=== PATIENT | male | born 1950 | race Caucasian/White ===

== ENCOUNTER → 2021-07-28 | Outpatient (CLI) | payer MEDICARE ==
--- NOTE | 2021-07-28 15:57 | XR ---
Right hip HISTORY: M 16.11 2 views of the right hip There is joint space loss, marginal spurring, subchondral eburnation and cystic lucency. Alignment an d bone mineralization are maintained. There are dense atherosclerotic calcifications. IMPRESSION: Osteoarthritis.
== END | disposition home or self-care (01) ==
LOC: RADXRMAIN 15:00
PROVIDERS: ATTEND Internal Medicine
DX: M16.11 Unilateral primary osteoarthritis, right hip (principal)
CPT/HCPCS: 73502

== ENCOUNTER → 2023-01-20 | Outpatient (CLI) | payer MEDICARE ==
--- NOTE | 2023-01-20 12:23 | CA ---
Exercise Nuclear Stress Test Report Name: Juan Carlos Renner Exam Date: 01/20/2023 11:20 Exam Location: [place] Stress Ht (in): 71 Wt (lb): 172 BSA: 1.98 Ordering Phys: Gerry Pimentel MD Referring Phys: Gerry Pimentel MD Technologist: Ricardo Raya Age: 72 Gender: M : 1950 Procedure CPT: Indications: I25.10 ICD-10 Codes: Patient History: Medications: FLOMAX, MOTRIN, PROSTATE HEALTH Meds past 24 hrs: Pretest Chest Pain: STRESS TEST Protocol Exercise Duration (min:sec): 06:[address] Depressions (mm): Angina Score: Padron Score: Resting HR (bpm): 60 Peak HR (bpm): 129 Resting BP (mmHg): 144 / 84 Peak BP (mmHg): 203 / 62 MPHR: 149 Target HR: 127 % MPHR: 87 METS: 7.1 Total Dose: Peak Dose: Atropine: Double Product: 44199 BP Response: Stress Termination: TARGET HR REACHED/MAX EXERTION Stress Symptoms: NO SYMPTOMS Stress Summary: ECG ANALYSIS Resting ECG: Stress ECG: CONCLUSIONS Good exercise tolerance Normal EKG in response to exercise Dr. Solitario Holden MD (Electronically Signed) Final Date: 20 January 2023 12:22
--- NOTE | 2023-01-20 12:26 | NM ---
EXAMINATION TYPE: NM stress cardiolite complete DATE OF EXAM: 01/20/2023 COMPARISON: NONE HISTORY: Chest pain TECHNIQUE: After the intravenous administration of 9.9 mCi Tc 99m Sestamibi - Rest images obtained 4 5 minutes post injection. The patient exercised using a DARRIAN protocol and 1 minute prior to peak e xercise was injected with 25.4 mCi Tc 99m Sestamibi - Stress images obtained 8 minutes post injection . FINDINGS: Targeted heart rate was achieved during performance of the study. Review of stress and rest SPECT berta ges demonstrates no distinct perfusion abnormality. Gated analysis shows normal wall motion with an estimated left ventricular ejection fraction of 54 %. IMPRESSION: No scintigraphic evidence for reversible ischemia
== END | disposition home or self-care (01) ==
LOC: RADNMMAIN 08:27
PROVIDERS: ATTEND Internal Medicine
DX: I25.10 Atherosclerotic heart disease of native coronary artery without angina pectoris (principal)
CPT/HCPCS: 93017; 78452; A9500

== ENCOUNTER → 2023-04-13 | Outpatient (CLI) | payer MEDICARE | END | disposition home or self-care (01) | LOC: LABPAT 09:35 | PROVIDERS: ATTEND Orthopaedic Surgery | DX: Z01.812 Encounter for preprocedural laboratory examination (principal); M16.11 Unilateral primary osteoarthritis, right hip; Z22.322 Carrier or suspected carrier of Methicillin resistant Staphylococcus aureus | CPT/HCPCS: 87070 ==

== ENCOUNTER 2023-04-17 12:46 | Day surgery (SDC) | payer MEDICARE ==
[2023-04-12 10:19] VITALS: BMI 24.0
--- NOTE | 2023-04-16 19:09 | HP ---
HISTORY AND PHYSICAL DATE OF SURGERY: 04/17/2023. HISTORY OF PRESENT ILLNESS: Juan Carlos Renner is a 72-year-old patient seen with symptomatic right hip osteoarthritis. We discussed options for treatment. The patient elected to proceed with direct anterior right total hip arthroplasty. Consent was obtained. PAST MEDICAL HISTORY: Noncontributory. PAST SURGICAL HISTORY: Noncontributory. DAILY MEDICATIONS: Flomax. ALLERGIES: None. SOCIAL HISTORY: Denies tobacco use. PHYSICAL EVALUATION OF THE RIGHT HIP: He has diffuse tenderness about the hip girdle. Very limited range of motion with severe pain. Positive hip impingement sign. Straight-leg raise negative. Distal neurovascular exam is intact. RADIOGRAPHS: Radiographs of the right hip revealed severe osteoarthritic changes. IMPRESSION: Right hip osteoarthritis. PLAN: Direct anterior right total hip arthroplasty. MMODL / IJN: [id number] /
[~2023-04-17 12:46] MED LIST: ACETAMINOPHEN TAB 500 MG TAB PO PRN; MELOXICAM 7.5 MG TAB PO PRN; TRANEXAMIC ACID IN NACL,ISO-OS 1,000 MG in SALINE 1 100ML.BAG IVPB PRN
[2023-04-17] MEDS ORDERED: ONDANSETRON 4 MG/2 ML VIAL ONE (13:14)
[2023-04-17] MEDS ORDERED: LACTATED RINGERS 1,000 ML IV ONE ×3 (13:20→17:46)
[2023-04-17] MEDS ORDERED: ONDANSETRON 4 MG/2 ML VIAL IVP ONE (14:04)
[2023-04-17] MEDS ORDERED: DEXAMETHASONE SOD PHOSPHATE 4 MG/ML 1 ML VIAL IVP ONE (14:05)
[2023-04-17] MEDS ORDERED: MIDAZOLAM 2 MG/2 ML VIAL IVP ONE (14:09)
--- NOTE | 2023-04-17 15:02 | P.ANPRN ---
Procedure Note - Anesthesia - Nerve Block Performed Right Lisandro Single Time Out Performed: Yes Date of Procedure: 04/17/23 Procedure Start Time: 14:08 Procedure Stop Time: 14:16 Location of Patient: PreOp Indication: Acute Post-Operative Pain, Requested by Surgeon Sedation Type: Sedate with meaningful contact maintained Preparation: Sterile Prep, Sterile Dressing Position: Supine Catheter: None Needle Types: Facet Needle Gauge: 20 Ultrasound used to visualize needle placement: Yes Ultrasound used to observe medication spread: Yes Injectate: 0.5% Ropivacaine (see comment for volume) (30 ml + decadron 4 mg) Blood Aspirated: No Pain Paresthesia on Injection Noted: No Resistance on Injection: Normal Image Stored and Saved: Yes Events: Uneventful and Well Tolerated
[2023-04-17] MEDS ORDERED: ROPIVACAINE 5 MG/ML 30 ML VIAL ONE (15:13)
[2023-04-17] MEDS ORDERED: PHENYLEPHRINE-0.9% NACL SYG 1,000 MCG/10 ML SYRINGE ONE (15:13)
[2023-04-17] MEDS ORDERED: fentaNYL (PF) 50 MCG/ML 2 ML AMP ONE (15:13)
[2023-04-17] MEDS ORDERED: GLYCOPYRROLATE 0.2 MG/ML 2 ML VIAL ONE (15:13)
[2023-04-17] MEDS ORDERED: MIDAZOLAM 2 MG/2 ML VIAL ONE (15:13)
[2023-04-17] MEDS ORDERED: DEXAMETHASONE SOD PHOSPHATE 4 MG/ML 1 ML VIAL ONE (15:13)
[2023-04-17] MEDS ORDERED: TRANEXAMIC ACID IN NACL,ISO-OS 1,000 MG/100 ML BAG ONE (15:13)
[2023-04-17] MEDS ORDERED: PROPOFOL 10 MG/ML 20 ML VIAL IV ONE (15:13)
[2023-04-17] MEDS ORDERED: NALOXONE 0.4 MG/ML 1 ML VIAL IV PRN (16:52)
[2023-04-17] MEDS ORDERED: HYDROcodone/APAP 5-325MG 1 EACH TAB PO PRN (16:52)
[2023-04-17] MEDS ORDERED: HYDROmorphone 0.5 MG/0.5 ML SYRINGE IVP PRN ×2 (16:52)
--- NOTE | 2023-04-17 16:52 | P.OP ---
Date of Procedure: 04/17/23 Preoperative Diagnosis: Right hip osteoarthritis Postoperative Diagnosis: Right hip osteoarthritis Procedure(s) Performed: Direct anterior right total hip arthroplasty Implants: 1. Depuy Corail 135 standard collar size 13 press-fit femoral stem 2. Depuy pinnacle 62 mm multi hole acetabular shell 3. Depuy pinnacle neutral polyethylene acetabular liner 36 mm ID 62 mm OD 4. Biolox delta ceramic femoral head 8.5 36 mm Anesthesia: regional (eector spinae block), spinal Surgeon: Joel Fitzgerald Cvicu Nurse #1: Andrew Handy Estimated Blood Loss (ml): 65 Pathology: none sent Condition: stable Disposition: PACU Indications for Procedure: 72-year-old patient seen with symptomatic right hip osteoarthritis. After treatment options were discussed, he elected to proceed with direct anterior right total hip arthroplasty. Operative Findings: See description of procedure Description of Procedure: The patient was taken to the operative suite. Patient underwent a spinal anesthetic by the department of anesthesia. Patient was then transferred to the [place] table. Patient was given preoperative IV antibiotics and TXA. Both lower extremities were placed in standard leg spars. The hip was then prepped and draped in the normal sterile orthopedic fashion. A standard anterior incision was made beginning 3 cm lateral and 1 cm distal to the ASIS extending 10 cm. Dissection was then carried down through the subcutaneous soft tissues down to the fascia overlying the tensor fascia julita. An incision was now made through the fascia. Careful dissection was taken down exposing the tensor fascia julita muscle. A Cobra retractor was now placed along the medial femoral neck and a second one along the lateral femoral neck. The venous circumflex vessels were now identified, cauterized and clipped. We identified the anterior hip capsule. An incision was made through the hip capsule along the lateral border. I performed a partial anterior capsulectomy. Retractors were now placed around the femoral neck itself. A femoral neck cut was now made with a sagittal saw. It was completed with an osteotome at the lateral neck area. The femoral head was now removed without difficulty. The extremity was now rotated to 60 of external rotation. It was locked in position. Residual labrum was now debrided out. Serial reaming was performed of the acetabulum while Sai TOBIN assisted holding an anterior retractor for exposure. Once we reached the appropriate size and a trial was position and fit nicely. The appropriate size was now chosen opened and made available. It was introduced into the acetabulum without difficulty. The C-arm/fluoroscopy was now brought into the operative field. We made sure we had a true AP pelvic view. We now under direct C- arm/fluoroscopy introduced into the acetabular component with appropriate version and inclination. I held the cup in appropriate position well Sai TOBIN used a mallet to seat the acetabular component. I noted the component now to be well seated and stable. Acetabular cup introduce her was removed. The C-arm was pulled back. An appropriate liner was introduced and clicked into position. It was felt to be stable. At this point retractors were removed. The extremity was now placed into 140 external rotation with no traction. The leg was now dropped to the ground and adducted. Appropriate retractors were now positioned along the proximal femur. We also placed our femoral look into position. Additional capsular releasing was performed to gain access to the proximal femur. We now used a box osteotome. A canal finder was now utilized. Serial broaching was now performed with the assistance of Sai TOBIN tapping the broaches down with a mallet while held the broach in appropriate rotation and position. This was done until we reached the appropriate size with good overall rotational stability. Appropriate calcar planing was performed. A trial head/neck was placed into position. The hip was now reduced. The C- arm/fluoroscopy was brought back into the operative field. I obtained AP pelvis was demonstrated adequate leg length alignment. The trial components appeared adequately size and position. The C-arm/fluoroscopy was pulled back. Retractors were repositioned and the hip was dislocated. The leg was again taken down to the ground and adducted. Appropriate retractors were repositioned as well as the femoral hook. All trial components were removed. The femoral implant was opened along with the femoral head. The femoral implant was introduced on the appropriate handle into our pre-broached area. I held the component position well Sai TOBIN used a mallet to seat the femoral component. The femoral component was now noted to be well seated and stable.. The femoral head was introduced with good positioning and fixation noted. Retractors were now removed. The hip was now reduced. There appeared be good positioning of the hip confirmed on intraoperative fluoroscopy. Spot films were obtained to document this. A second gram of TXA was given. The deep and superficial soft tissues were infiltrated with local analgesic. Bipolar cautery had been utilized intermittently through the procedure for hemostasis. The wound was irrigated copiously with pulse lavage mechanical irrigation. The fascia was repaired with Vicryl suture. The subcutaneous soft tissues were repaired in layers with Vicryl suture. The skin was approximated with pernio/Dermabond. Sterile dressings were applied. Patient was then awakened, transferred to a bed and taken to recovery in stable condition. Sai TOBIN assisted with the complex procedure.
[2023-04-17] MEDS ORDERED: LACTATED RINGERS 1,000 ML IV SCH (17:00)
--- NOTE | 2023-04-17 17:00 | FL ---
Intraoperative/procedural fluoroscopic services were provided. Total fluoroscopy time is 14 seconds w ith a total of 2 submitted images to PACS. Please see the operative/procedural note for further detai ls. DAP: 0.6889 mGym2
[2023-04-17] MEDS: HYDROmorphone 0.5 MG/0.5 ML SYRINGE IVP PRN ×2 (17:27→21:56)
[2023-04-17] MEDS: HYDROcodone/APAP 7.5-325MG 1 EACH TAB PO PRN (19:41)
[2023-04-17] MEDS ORDERED: SENNOSIDES-DOCUSATE SODIUM 1 EACH TAB PO SCH (21:00)
[2023-04-18] MEDS: HYDROcodone/APAP 7.5-325MG 1 EACH TAB PO PRN (03:11)
[2023-04-18 05:40] LABS: Basophils % (A) 0 %; Eosinophils % (A) 0 %; Lymphocytes # (A) 0.8 k/uL (1.0-4.8); Lymphocytes % (A) 6 %; MCH 30.3 pg (25.0-35.0); MCHC 33.4 g/dL (31.0-37.0); MCV 90.8 fL (80.0-100.0); Mean Platelet Volume 8.8; Monocytes # (A) 0.6 k/uL (0-1.0); Monocytes % (A) 5 %; Neutrophils # (A) 11.6 k/uL (1.3-7.7); Neutrophils % (A) 88 %; Platelet Count 174 k/uL (150-450); RBC 3.96 m/uL (4.30-5.90); RDW 13.3 % (11.5-15.5); WBC 13.3 k/uL (3.8-10.6)
[2023-04-18 07:49] VITALS: BP 119/66; PULSE 57; RESP 16; TEMP 97.9
--- NOTE | 2023-04-18 08:16 | P.PN ---
Subjective Progress Note Date: 04/18/23 Principal diagnosis: Status post direct anterior right total hip arthroplasty Patient evaluated today at bedside, he is eating breakfast. Patient notes he did have some discomfort through the night but seems to be improved this morning. Ambulating with the assistance of walker with no issues. He is eager to work with physical therapy. Patient denies any headaches, lightheadedness, chest pain or shortness of breath. Objective - Vital Signs Vital signs: Vital Signs Temp 97.9 F 04/18/23 07:15 Pulse 57 L 04/18/23 07:15 Resp 16 04/18/23 07:15 BP 119/66 04/18/23 07:15 Pulse Ox 96 04/18/23 07:15 FiO2 Intake & Output 04/17/23 04/18/23 04/18/23 18:59 06:59 18:59 Intake Total 2620 Output Total 65 Balance 2555 Weight 77.2 kg Intake: IV 2250 Intake, IV Titration 70 Amount Lactated Ringers 1,000 ml 70 @ 70 mls/hr IV .[id number] [facility] Rx#:[id number] Oral 300 Output: Estimated Blood Loss 65 Other: # Voids 1 - Exam Right lower extremity: Incision is clean, dry, and intact. The foam dressing is in good condition. [There is minimal soft tissue swelling and ecchymosis surrounding the medial and lateral aspects of the incision.] Calf is soft, no tenderness with palpation. Plantar flexion, dorsiflexion, EHL, FHL are intact. Sensory exam to light touch throughout the extremity is intact, [dorsal pedis pulses 2+.] - Labs CBC & Chem 7: 04/18/23 05:07 Labs: Abnormal Lab Results - Last 24 Hours (Table) 04/18/23 Range/Units 05:07 WBC 13.3 H (3.8-10.6) k/uL RBC 3.96 L (4.30-5.90) m/uL Hgb 12.0 L (13.0-17.5) gm/dL Hct 36.0 L (39.0-53.0) % Neutrophils # 11.6 H (1.3-7.7) k/uL Lymphocytes # 0.8 L (1.0-4.8) k/uL Assessment and Plan Assessment: Postoperative day #1 status post right direct anterior hip replacement Plan: Pain control, plan for discharge home on Wysox 7.5 mg/325 mg DVT prophylaxis, aspirin 81 mg twice a day for 30 days Wound care instructions discussed, this to include showering instructions, removal of bandage and icing and elevating Home physical therapy after discharge Encourage incentive spirometer Medical recommendations Discharge planning: pending how patient does with physical therapy, anticipate dc to home later today Time with Patient: Less than 30
[2023-04-18] MEDS ORDERED: ENOXAPARIN 40 MG/0.4 ML SYRINGE SQ SCH (09:00)
[2023-04-18] MEDS ORDERED: MELOXICAM 7.5 MG TAB PO SCH (09:00)
[2023-04-18] MEDS ORDERED: ATORVASTATIN 40 MG TAB PO SCH (09:00)
[2023-04-18] MEDS ORDERED: FINASTERIDE 5 MG TAB PO SCH (09:00)
[2023-04-18] MEDS ORDERED: TAMSULOSIN 0.4 MG CAP.ER.24H PO SCH (09:00)
[2023-04-18] MEDS ORDERED: FAMOTIDINE 20 MG TAB PO SCH (09:00)
[2023-04-18] MEDS ORDERED: MULTIVITAMINS, THERA 1 EACH TAB PO SCH (09:00)
--- NOTE | 2023-04-18 09:00 | P.CONS ---
History of Present Illness - Reason for Consult Consult date: 04/17/23 Medical management Requesting physician: Joel Fitzgerald - Chief Complaint Status post anterior right total hip arthroplasty - History of Present Illness HISTORY OF PRESENT ILLNESS: This is a 72-year-old male with a previous medical history significant for hyperlipidemia as well as enlarged prostate with lower urinary tract symptoms, osteoarthritis underwent right anterior total hip arthroplasty that was done successfully by Dr. Fitzgerald today and we were asked to see the patient for postoperative medical management, patient is laying down in bed in no apparent distress, he denies any chest pain, shortness breath, he has no abdominal pain, nausea vomiting or diarrhea, he seems to be tolerating treatment very well. REVIEW OF SYSTEMS: Constitutional: No documented fever, no chills, no night sweats. No weight change. No weakness, fatigue or lethargy. No daytime sleepiness. EENT: No headache. No blurred vision or double vision, no loss of vision. No loss of Hearing, no ringing in the ears, no dizziness. No nasal drainage or congestion. No epistaxis. No sore throat. Lungs: No shortness of breath, no cough, no sputum production. No wheezing. Reports dyspnea with activity. Cardiovascular: No chest pain, no lower extremity edema. No palpitations. No paroxysmal nocturnal dyspnea. No orthopnea. No lightheadedness or dizziness. No syncopal episodes. Abdominal: Reports abdominal pain. No nausea, vomiting. No diarrhea. No const ipation. No bloody or tarry stools reports loss of appetite. Genitourinary: No dysuria, increased frequency, urgency. No urinary retention. Musculoskeletal: No myalgias. No muscle weakness, no gait dysfunction, no frequent falls. No back pain. No neck pain. Integumentary: No wounds, no lesions. No rash or pruritus. No unusual bruising. No change in hair or nails. Neurologic: No aphasia. No facial droop. No change in mentation. No head injury. No headache. No paralysis. No paresthesia. Psychiatric: No depression. No anxiety. No mood swings. Endocrine: No abnormal blood sugars. No weight change. PAST MEDICAL HISTORY: Mixed hyperlipidemia Osteoarthritis BPH. PAST SURGICAL HISTORY: Colonoscopy October 2017 Colonoscopy 03/26/2021 SOCIAL HISTORY: Patient is a lifelong nonsmoker he denies any history of drinking, no drug use or abuse. FAMILY HISTORY: Father at age of 93 from stroke and he had hypertension, mother at age of 76 from congestive heart failure and diabetes mellitus type 2, patient had 2 brothers one brother had Parkinson and the other one with diabetes and CVA, patient has 2 sisters one sister has breast cancer patient has one son and 2 daughter one of them with Marcos thyroiditis. PHYSICAL EXAMINATION: General: 72-year-old male laying down in bed in no apparent distress HEENT: Head is atraumatic, normocephalic, pupils were equal round reactive to light and recommendation, extraocular muscle movement were intact, sclera no nicteric, conjunctivae were pale, mucous membranes of the mouth are somewhat dry. Neck: Supple, no JVP, normal carotid upstroke bilaterally, no lymphadenopathy. Chest: Decreased breath sounds at the bases, few rhonchi, no expiratory wheezes, no chest wall tenderness, no intercostal retractions. Heart: First heart sound is normal, second heart sound is normal there is systolic ejection murmur 2/6 located in the left sternal border per Abdomen: Soft, nontender, nondistended, positive bowel sounds. Extremities: There is no edema no calf tenderness DP +2 bilaterally, right hip is covered. Neurologic examination: Patient is awake alert and oriented x 3, cranial nerves II-12 appear grossly intact, muscle power were 5 out of 5 in upper extremities and 5 out of 5 in bilateral lower extremities, deep tendon reflexes normal bilaterally. ASSESSMENT AND PLAN: 1. Post operative day #0 status post right direct anterior hip arthroplasty. Patient was instructed to use the incentive spirometer to reduce the incidence of atelectasis and health care associated pneumonia, continue current pain henrry gement as outlined by orthopedic surgery, continue with DVT prophylaxis, early ablation, monitor the patient for urinary retention, resume his home medication, follow-up with the patient very closely, likely would be discharged home in the next 24 hours 2. Mixed hyperlipidemia. Continue patient on atorvastatin 40 mg orally once every day. 3. BPH. Continue patient on finasteride 5 mg once every day as well as Flomax 0.4 mg once every day, monitor the patient for urinary retention. 4. Osteoarthritis. Continue current pain management. 5. DVT prophylaxis. Continue patient on Lovenox 40 mg subcutaneous every 24 hours. Continue bilateral knee-high HOLLIS hose , early ambulation. 6. GI prophylaxis. Continue famotidine 20 mg orally once every day. 7. Thank you Dr. Fitzgerald for allowing me to participate in the care of your patient we will follow the patient along with you. Past Medical History Past Medical History: Hyperlipidemia, Osteoarthritis (OA), Prostate Disorder Additional Past Medical History / Comment(s): steroid injection February 2023 History of Any Multi-Drug Resistant Organisms: None Reported Past Surgical History: No Surgical Hx Reported Past Anesthesia/Blood Transfusion Reactions: No Reported Reaction, Motion Sickne ss Additional Past Anesthesia/Blood Transfusion Reaction / Comm: never has general anesthesia or blood transfusion Smoking Status: Never smoker - Past Family History Mother Family Medical History: Hypertension Brother(s) Family Medical History: CVA/TIA Medications and Allergies Home Medications Medication Instructions Recorded Confirmed Type Atorvastatin Calcium [Lipitor] 40 mg PO DAILY 04/12/23 04/17/23 History Finasteride [Proscar] 5 mg PO QAM 04/12/23 04/17/23 History Ibuprofen [Advil] 200 mg PO Q8HR PRN 04/12/23 04/17/23 History Lidocaine 5% Patch [Lidoderm] 1 patch TOPICAL DAILY PRN 04/12/23 04/17/23 History Multivitamins, Thera [Multivitamin 1 tab PO DAILY 04/12/23 04/17/23 History (formulary)] Tamsulosin HCl [Flomax] 0.4 mg PO QAM 04/12/23 04/17/23 History Aspirin [Adult Low Dose Aspirin EC] 81 mg PO BID #60 tab 04/18/23 Rx HYDROcodone/APAP 7.5-325MG [Osco 1 each PO Q6HR PRN #28 tab 04/18/23 Rx 7.5] Sennosides/Docusate Sodium 1 each PO DAILY PRN #30 tablet 04/18/23 Rx [Senna-S 8.6-50 mg Tablet] Allergies Allergy/AdvReac Type Severity Reaction Status Date / Time No Known Allergies Allergy Verified 04/17/23 13:12 Physical Exam Vitals: Vital Signs Temp Pulse Resp BP BP Pulse Ox 04/17/23 17:50 52 L 17 100/54 95 04/17/23 17:35 51 L 16 81/51 95 04/17/23 17:20 56 L 17 97/60 96 04/17/23 17:06 97.8 F 66 16 99/60 95 04/17/23 14:22 50 L 16 127/78 100 04/17/23 13:46 97.3 F L 51 L 18 160/72 99 Intake and Output 04/17/23 04/17/23 04/17/23 06:59 14:59 22:59 Intake Total 400 1850 Output Total 65 Balance 400 1785 Intake: IV 400 1850 Output: Estimated Blood Loss 65 Other: Weight 77.2 kg Results CBC & Chem 7: 04/18/23 05:07
--- NOTE | 2023-04-18 13:20 | P.PN ---
Subjective Progress Note Date: 04/18/23 HISTORY OF PRESENT ILLNESS: This is a 72-year-old male with a previous medical history significant for hyperlipidemia as well as enlarged prostate with lower urinary tract symptoms, osteoarthritis underwent right anterior total hip arthroplasty that was done successfully by Dr. Fitzgerald today and we were asked to see the patient for postoperative medical management, patient is laying down in bed in no apparent distress, he denies any chest pain, shortness breath, he has no abdominal pain, nausea vomiting or diarrhea, he seems to be tolerating treatment very well. 04/18: Patient is postop day #1. Pain to the right hip seems to be controlled. He has been able to ambulate with walker and started physical therapy today. Patient denies any chest pain, shortness of breath, lightheadedness or dizziness. Blood work today reveals WBC 13.3, hemoglobin 12, platelet count 174. Blood pressure is 119/66 and heart rate is running in the 50s. Pulse ox 96% on room air. Patient has been afebrile. Patient is scheduled for discharge home today. Medication reconciliation has been reviewed for discharge. REVIEW OF SYSTEMS: Constitutional: No documented fever, no chills, no night sweats. No weight change. No weakness, fatigue or lethargy. No daytime sleepiness. EENT: No headache. No blurred vision or double vision, no loss of vision. No loss of Hearing, no ringing in the ears, no dizziness. No nasal drainage or congestion. No epistaxis. No sore throat. Lungs: No shortness of breath, no cough, no sputum production. No wheezing. Reports dyspnea with activity. Cardiovascular: No chest pain, no lower extremity edema. No palpitations. No paroxysmal nocturnal dyspnea. No orthopnea. No lightheadedness or dizziness. No syncopal episodes. Abdominal: Reports abdominal pain. No nausea, vomiting. No diarrhea. No constipation. No bloody or tarry stools reports loss of appetite. Genitourinary: No dysuria, increased frequency, urgency. No urinary retention. Musculoskeletal: No myalgias. No muscle weakness, no gait dysfunction, no frequent falls. No back pain. No neck pain. Mild discomfort to the right hip. Integumentary: No wounds, no lesions. No rash or pruritus. No unusual bruising. No change in hair or nails. Neurologic: No aphasia. No facial droop. No change in mentation. No head injury. No headache. No paralysis. No paresthesia. Psychiatric: No depression. No anxiety. No mood swings. Endocrine: No abnormal blood sugars. No weight change. PHYSICAL EXAMINATION: General: 72-year-old male laying down in bed in no apparent distress HEENT: Head is atraumatic, normocephalic, pupils were equal round reactive to light and recommendation, extraocular muscle movement were intact, sclera nonicteric, conjunctivae were pale, mucous membranes of the mouth are somewhat dry. Neck: Supple, no JVP, normal carotid upstroke bilaterally, no lymphadenopathy. Chest: Decreased breath sounds at the bases, few rhonchi, no expiratory wheezes, no chest wall tenderness, no intercostal retractions. Heart: First heart sound is normal, second heart sound is normal there is systolic ejection murmur 2/6 located in the left sternal border per Abdomen: Soft, nontender, nondistended, positive bowel sounds. Extremities: There is no edema no calf tenderness DP +2 bilaterally, right hip is covered. Neurologic examination: Patient is awake alert and oriented x 3, cranial nerves II-12 appear grossly intact, muscle power were 5 out of 5 in upper extremities and 5 out of 5 in bilateral lower extremities, deep tendon reflexes normal bilaterally. ASSESSMENT AND PLAN: 1. Post operative day #1 status post right direct anterior hip arthroplasty. Patient was instructed to use the incentive spirometer to reduce the incidence of atelectasis and health care associated pneumonia, continue current pain management as outlined by orthopedic surgery, continue with DVT prophylaxis, early ablation, monitor the patient for urinary retention, resume his home medication. 2. Mixed hyperlipidemia. Continue patient on atorvastatin 40 mg orally once every day. 3. BPH. Continue patient on finasteride 5 mg once every day as well as Flomax 0.4 mg once every day, monitor the patient for urinary retention. 4. Osteoarthritis. Continue current pain management. 5. DVT prophylaxis. Continue patient on Lovenox 40 mg subcutaneous every 24 hours. Continue bilateral knee-high HOLLIS hose , early ambulation. 6. GI prophylaxis. Continue famotidine 20 mg orally once every day. 7. Thank you Dr. Fitzgerald for allowing me to participate in the care of your patient we will follow the patient along with you. Impression and plan of care have been directed as dictated by the signing physician. Pilar Bui nurse practitioner acting as scribe for signing physician. Objective - Vital Signs Vital signs: Vital Signs Temp 97.9 F 04/18/23 07:15 Pulse 57 L 04/18/23 07:15 Resp 16 04/18/23 07:15 BP 119/66 04/18/23 07:15 Pulse Ox 97 04/18/23 08:59 FiO2 Intake & Output 04/17/23 04/18/23 04/18/23 18:59 06:59 18:59 Intake Total 2620 Output Total 65 Balance 2555 Weight 77.2 kg Intake: IV 2250 Intake, IV Titration 70 Amount Lactated Ringers 1,000 ml 70 @ 70 mls/hr IV .[id number] [facility] Rx#:[id number] Oral 300 Output: Estimated Blood Loss 65 Other: # Voids 1 1 - Labs CBC & Chem 7: 04/18/23 05:07 Labs: Abnormal Lab Results - Last 24 Hours (Table) 04/18/23 Range/Units 05:07 WBC 13.3 H (3.8-10.6) k/uL RBC 3.96 L (4.30-5.90) m/uL Hgb 12.0 L (13.0-17.5) gm/dL Hct 36.0 L (39.0-53.0) % Neutrophils # 11.6 H (1.3-7.7) k/uL Lymphocytes # 0.8 L (1.0-4.8) k/uL
--- NOTE | 2023-04-18 13:33 | P.DS ---
Providers Date of admission: 04/17/2023 Expected date of discharge: 04/18/23 Attending physician: Joel Fitzgerald Consults: 04/17/23 16:52 Consult Physician Routine Consulting Provider: Gerry Pimentel Consult Reason/Comments: Medical management Do you want consulting provider notified?: Yes Primary care physician: Gerry Pimentel Hospital Course: Date of admission: 04/17/2023 Date of discharge: 04/18/2023 Admission diagnosis: Status post direct anterior right total hip arthroplasty Discharge diagnosis: Same Attending physician: Dr. Fitzgerald Surgical procedures: Direct anterior right total hip arthroplasty Brief history: Patient is a 72-year-old male with a history of progressive primary right hip osteoarthritis. At this point patient has failed conservative treatment measures and has opted to proceed with a elective direct anterior right total hip arthroplasty. Hospital course: Details of patient's surgery can be found in operative report. Patient tolerated the procedure well and was subsequently transported to orthopedic floor. Patient's orthopeidc and medical care was provided daily. Patient had daily laboratory tests performed for evaluation of overall blood counts. Patient had daily physical therapy to include strengthening range of motion as well as education with walker ambulation. Patient was treated with Lovenox for their postoperative DVT prophylaxis during their inpatient stay. Patient was noted to have a relatively uneventful postoperative course. Patient reported satisfactory pain control with oral pain medications by postoperative day 0. Patient showed satisfactory progress with physical therapy. Patient moved steadily through the program and had no difficulty meeting the goals by postoperative day 1. Given patient's otherwise satisfactory course and having met physical therapy goals, plan is to discharge patient home on postoperative day 1. Discharge condition/disposition: Patient will be discharged home in stable condition. Discharge medications: Instructions are given on resumption of patient's normal daily medications per primary care recommendation, in addition patient will be prescribed Pomeroy 7.5/325 mg, Senna-S, Aspirin 81mg Discharge instructions: 1. Wound care and infection precautions, keep incision dry and covered while showering, no lotions, creams, moisturizers. No soaking, tubs, pools, hottubs. Do not scrub over the incision. 2. Weight-bear as tolerated with walker / cane until follow-up. 3. Ice and elevate when necessary. Do not exceed 20 minutes per hour with ice pack. 4. Utilize compression sleeve until seen at first follow up appointment. 5. Visiting nursing care. 6. Home physical therapy including home CPM. 7. Pain meds and anticoagulants per prescription. 8. Pain medication has potential to cause constipation. Increase oral fluid and fiber intake. Contact primary care provider if you have not had a bowel movement within 48 hours after discharge 9. No anti-inflammatory medication until discussed at first post operative visit, this including Motrin, Aleve, Mobic, Diclofenac. 10. Follow up in office at 2 weeks postop with Sai Handy PA-C/Brice Stewart 11. Follow up with your primary care doctor 7-10 days after discharge. 12. Contact [facility] with any questions, . Procedures: Direct anterior right total hip arthroplasty Patient Condition at Discharge: Good Plan - Discharge Summary Discharge Rx Participant: Yes New Discharge Prescriptions: New HYDROcodone/APAP 7.5-325MG [Pomeroy 7.5] 1 each PO Q6HR PRN #28 tab PRN Reason: Pain Aspirin [Adult Low Dose Aspirin EC] 81 mg PO BID #60 tab Sennosides/Docusate Sodium [Senna-S 8.6-50 mg Tablet] 1 each PO DAILY PRN #30 tablet PRN Reason: Constipation Continue Lidocaine 5% Patch [Lidoderm 5% Patch] 1 patch TOPICAL DAILY PRN PRN Reason: Pain Finasteride [Proscar] 5 mg PO QAM Ibuprofen [Advil] 200 mg PO Q8HR PRN PRN Reason: Pain Multivitamins, Thera [Multivitamin (formulary)] 1 tab PO DAILY Atorvastatin Calcium [Lipitor] 40 mg PO DAILY Tamsulosin HCl [Flomax] 0.4 mg PO QAM Discharge Medication List Atorvastatin Calcium [Lipitor] 40 mg PO DAILY 04/12/23 [History] Finasteride [Proscar] 5 mg PO QAM 04/12/23 [History] Ibuprofen [Advil] 200 mg PO Q8HR PRN 04/12/23 [History] Lidocaine 5% Patch [Lidoderm 5% Patch] 1 patch TOPICAL DAILY PRN 04/12/23 [History] Multivitamins, Thera [Multivitamin (formulary)] 1 tab PO DAILY 04/12/23 [History] Tamsulosin HCl [Flomax] 0.4 mg PO QAM 04/12/23 [History] Aspirin [Adult Low Dose Aspirin EC] 81 mg PO BID #60 tab 04/18/23 [Rx] HYDROcodone/APAP 7.5-325MG [Pomeroy 7.5] 1 each PO Q6HR PRN #28 tab 04/18/23 [Rx] Sennosides/Docusate Sodium [Senna-S 8.6-50 mg Tablet] 1 each PO DAILY PRN #30 tablet 04/18/23 [Rx] Follow up Appointment(s)/Referral(s): [facility], [NON-STAFF] - As Needed Gerry Pimnetel MD [Primary Care Provider] - 04/24/23 9:30 am Andrew Handy PAC [PHYSIC[facility] [employer]] - 05/03/23 3:20 pm Patient Instructions/Handouts: Total Hip Replacement (DC) Activity/Diet/Wound Care/Special Instructions: Orthopedic Discharge Instructions: 1. Wound care and infection precautions, keep incision dry and covered while showering, no lotions, creams, moisturizers. No soaking, pools, hot tubs. Do not scrub over incision. 2. Weight-bear as tolerated with walker / cane until follow-up. 3. Ice and elevate when necessary. Do not exceed 20 minutes per hour with ice pack. 4. Utilize compression sleeve until seen at first follow up appointment. 5. Pain meds and anticoagulants per prescription. 6. Pain medication has potential to cause constipation. Increase oral fluid and fiber intake. Contact primary care provider if you have not had a bowel movement within 48 hours after discharge. 7. No anti-inflammatory medication until discussed at first post operative visit, this including Motrin, Aleve, Mobic, Diclofenac. 8. Follow up in office at 2 weeks postop with Sai Handy PA-C/Brice Campbell PA-C 9. Follow up with your primary care doctor 7-10 days after discharge. 10. Contact [facility] with any questions, . Wound care instructions: 1. Okay to remove foam dressing as of 04/24/2023 2. Okay to shower directly over the incision after removal of dressing Discharge Disposition: HOME WITH HOME HEALTH SERVICES
== END 2023-04-18 13:19 | disposition home health service (06) ==
LOC: OR 12:46 → 4SSUR 17:28 → OR 04-18 13:19
PROVIDERS: ATTEND Orthopaedic Surgery
DX: M16.11 Unilateral primary osteoarthritis, right hip (principal); E78.5 Hyperlipidemia, unspecified; G89.18 Other acute postprocedural pain; Z79.899 Other long term (current) drug therapy
CPT/HCPCS: 27130; 94760; 97161; 64447; 86900; 86901; 85025; 86850; 73501; 36415; C1776; S0138; J2250; J1100; J0690 ×2; J2405; J1650; J3010; J2795; J2370; J2704; J1170

== ENCOUNTER → 2025-02-18 | Outpatient (CLI) | payer MEDICARE ==
--- NOTE | 2025-02-18 12:10 | US ---
EXAMINATION TYPE: US carotid duplex BILAT DATE OF EXAM: 02/18/2025 COMPARISON: NONE CLINICAL INDICATION: Male, 74 years old with history of I65.23 ASYMPTOMATIC MENOPAUSAL STATE; routine check up Additional History: .... TECHNIQUE: Grayscale, color Doppler and spectral Doppler evaluation of the bilateral carotid systems and vertebral arteries. Indirect Doppler criteria was utilized. FINDINGS: EXAM MEASUREMENTS: RIGHT: Peak Systolic Velocity (PSV) cm/sec ----- Right CCA: 66.6 ----- Right ICA: 107 ----- Right ECA: 90.7 ICA/CCA ratio: 1.6 RIGHT: End Diastole cm/sec ----- Right CCA: 12.4 ----- Right ICA: 20.7 ----- Right ECA: 6.9 LEFT: Peak Systolic Velocity (PSV) cm/sec ----- Left CCA: 74.2 ----- Left ICA: 128 ----- Left ECA: 80.3 ICA/CCA ratio: 1.7 LEFT: End Diastole cm/sec ----- Left CCA: 8.6 ----- Left ICA: 20.5 ----- Left ECA: 7.4 VERTEBRALS (direction of flow): Right Vertebral: Antegrade Left Vertebral: Antegrade Rhythm: Normal WEEKEND ANCHOR NOTES: Slight interval thickening Left dist CCA No elevated velocities, plaque or significant stenosis seen bilaterally Color Doppler imaging shows patency with blood flow throughout the carotid artery. Spectral waveforms are within normal limits. IMPRESSION: No hemodynamically significant internal carotid artery stenosis on either side. Criteria for Assigning % of Stenosis / Diameter reduction (Estimation based on the indirect measurements of the internal carotid artery velocities (ICA PSV). 1. Normal (no stenosis)=ICA PSV < 180 cm/s: ratio < 2.0: ICA EDV<40 cm/s. 2. Less than 50% stenosis=ICA PSV < 180 cm/s: ratio < 2.0: ICA EDV<40 cm/s. 3. 50 to 69% stenosis=ICA PSV of 180 to 230 cm/s: ration 2.0 ? 4.0: ICA EDV 40-100 cm/s. PSV 125-180 cm/sec and ICA/CCA PSV Ratio ? 2.0 is also consistent with 50-69% stenosis 4. Greater than 70% stenosis to near occlusion= ICA PSV > 230 cm/s: ratio > 4.0: ICA EDV > 100 cm/s. 5. Near occlusion= ICA PSV velocities may be low or undetectable: variable ratio and ICA EDV. 6. Total occlusion=unable to detect flow. [facility], Workstation: [facility], 02/18/2025 12:08 PM
== END | disposition home or self-care (01) ==
LOC: RADUSWWP 10:32
PROVIDERS: ATTEND Internal Medicine
DX: I65.23 Occlusion and stenosis of bilateral carotid arteries (principal)
CPT/HCPCS: 93880

== ENCOUNTER → 2025-05-26 | Outpatient (CLI) | payer MEDICARE ==
--- NOTE | 2025-05-26 12:18 | MR ---
EXAMINATION TYPE: MR knee LT wo con DATE OF EXAM: 05/26/2025 10:57 AM COMPARISON: Outside radiographs 05/13/2025 CLINICAL INDICATION: Male, 75 years old with history of M25.562 LEFT KNEE PAIN, Left knee pain x 3 mo nths, no trauma. TECHNIQUE: Multiplanar, multisequence imaging of the left knee is performed without IV contrast. FINDINGS: ACL and PCL are intact. There is edema on either side of the otherwise intact MCL. Inhomogeneous signal at the femoral attachment of the LCL proper and additional inhomogeneous signal within the popliteus tendon with fluid extending to the tendinous junction. There is a large obliquely oriented tear extending throughout the posterior horn and body of the medi al meniscus with mild extrusion of the meniscal body. Mild irregular cartilage loss along the mid bethel ghtbearing aspect of the medial compartment. There is a large obliquely oriented tear extending through the anterior horn and body of the lateral meniscus. Minimal superficial cartilage irregularity mid weightbearing aspect of the lateral compartm ent. Mild irregular cartilage thinning along both medial and lateral patellar facets. Extensor mechanism is intact. Mild anterior soft tissue swelling. Additional mild generalized soft ti ssue swelling. There is a moderate knee joint effusion with mild chronic synovitis and trace leaking Meadows's cyst. Normal popliteal artery anatomy and muscle bulk. No suspicious bone marrow replacement. Prominent edema involving the semimembranosus muscle belly. The insertion along the posterior medial tibial plateau is intact. IMPRESSION: 1. Grade 1 MCL sprain. Grade 2 sprain femoral attachment of the LCL proper. Additional popliteal tend on contusion. 2. Large oblique tear extending through the posterior horn and body of the medial meniscus with mild overall medial compartmental OA. 3. Large oblique tear extending through the anterior horn and body of the lateral meniscus. 4. Mild degenerative cartilage thinning along the back side of the patella. 5. Moderate knee joint effusion with mild chronic sinusitis and trace leaking Meadows's cyst. 6. Prominent semimembranosus muscle edema. Its tibial insertion remains intact. Findings could reflec t a hamstrings muscle strain. Correlate to exclude any suspicion of a proximal hamstrings injury/avul soha. [facility], , 05/26/2025 12:16 PM
== END | disposition home or self-care (01) ==
LOC: RADMRIMAIN 10:04
PROVIDERS: ATTEND Orthopaedic Surgery
DX: S83.412A Sprain of medial collateral ligament of left knee, initial encounter (principal); S83.282A Other tear of lateral meniscus, current injury, left knee, initial encounter; M17.12 Unilateral primary osteoarthritis, left knee; M25.462 Effusion, left knee